=== PATIENT | male | born 1940 | race Caucasian/White ===

== ENCOUNTER 2016-05-24 10:50 | Emergency (ER) | payer MEDICARE, OTHER ==
[~2016-05-24] VITALS: Ht 175.3 cm; Wt 91.0 kg
[~2016-05-24 10:50] MED LIST: ASPI325T PO; ATEN1TAB74 PO; CLOP75 PO; NIAS10004 PO; PRIN10TA PO; PROS5TAB2 PO; ZOCO40TA PO
[2016-05-24 10:53] VITALS: BP 143/73; PULSE 80; RESP 18; TEMP 97.9; O2SAT 95
[2016-05-24] MEDS ORDERED: TRAM50TA PO (12:26)
--- NOTE | 2016-05-24 12:26 | PD ---
HPI Chief Complaint: Pain: Acute or Chronic Time Seen by Provider: 12:23 Travel History International Travel<30 days: No Contact w/Intl Traveler<30days: No Traveled to known affect area: No History of Present Illness HPI This 75-year-old man who presents emergent arm clinic of left leg pain. He states he is a history of sciatica. An MRI that showed a small cysts but he saw neurosurgery and admitted think it was related. [place] helped some but the pains coming back. He also has pain in his knee eating may be from arthritis. He has diabetes, CAD. He is told not to take NSAIDs. Is a little bit numbness and tingling. He states he has to stop with walking long distances more than 100 yards or so and rest. No history of claudication or blood flow problems in the past. History Past Medical History Narrative Medical CAD Diabetes Sciatica Social History Alcohol Use: Yes (ONCE A MONTH -BEER) Tobacco Use: No Allergies-Medications (Allergen,Severity, Reaction): Coded Allergies: No Known Allergies (Verified , 06/08/09) Reported Meds & Prescriptions Reported Meds & Active Scripts Active Reported Plavix (Clopidogrel Bisulfate) 75 Mg Tab 75 Mg PO DAILY Prinivil (Lisinopril) 10 Mg Tab 10 Mg PO DAILY Proscar (Finasteride) 5 Mg Tab 5 Mg PO HS Zocor (Simvastatin) 40 Mg Tab 40 Mg PO HS Aspirin 325 Mg Tab 325 Mg PO DAILY Niaspan Er (Niacin) 1,000 Er Tab 2,000 Mg PO HS Tenormin (Atenolol) 50 Mg Tab 50 Mg PO DAILY Review of Systems Except as stated in HPI: all other systems reviewed are Neg Physical Exam Narrative GENERAL: Well-developed, well-nourished, no acute distress. SKIN: Warm and dry. CARDIOVASCULAR: Warm and well perfused. RESPIRATORY: Normal rate and effort. MUSCULOSKELETAL: Normal appearance of back and bilateral lower extremities. No ecchymosis, swelling, bruising. No rashes. Normal muscle bulk and tone. NEUROLOGICAL: Full strength in both lower extremities. Good pulses in both lower extremities. Normal sensation. Some crepitus with extension of the left knee. Negative straight leg raise. Back exam is unremarkable. PSYCHIATRIC: Appropriate mood and affect; insight and judgment normal. Data Data Last Documented VS Vital Signs Date Time Temp Pulse Resp B/P Pulse Ox O2 Delivery O2 Flow Rate FiO2 05/24/16 10:53 97.9 80 18 143/73 95 MDM Medical Decision Making Medical Screen Exam Complete: Yes Emergency Medical Condition: Yes Differential Diagnosis Back pain, sciatica, claudication, PVD, other Narrative Course Medical decision making the Is a 75-year-old man who presents to the emergency department cleaning of left leg pain. Likely sciatica versus plication. Looks well. Is cannot return home in a month or so. Had benefit from injection in the past. We will refer him to Dr. Mallory. Recommend Tylenol, tramadol, outpatient follow-up. Diagnosis Primary Impression: Sciatica Qualified Code: M54.32 - Sciatica of left side Referrals: Heaven Mallory MD 1 week Patient Instructions: General Instructions Additional Instructions: Take Tylenol, 1000 mg, 3 times daily as needed for pain. Take tramadol in addition to Tylenol as needed for pain. Follow-up with Dr. Mallory for consideration of an injection similar to what you had in the past. Return to the emergency department for any new or worsening symptoms. Med/Other Pt SpecificInfo: Prescription(s) given Scripts Tramadol 50 Mg Tab50 Mg PO Q8H PRN (PAIN) #15 TAB Ref 0 Prov:Mike Shi MD 05/24/16 Disposition: 01 DISCHARGE HOME Condition: Stable Mike Shi MD May 24, 2016 12:26
== END 2016-05-24 13:32 | disposition home or self-care (01) ==
LOC: NEPA 10:50
DX: M54.32 Sciatica, left side (principal); I25.10 Atherosclerotic heart disease of native coronary artery without angina pectoris; E11.9 Type 2 diabetes mellitus without complications
CPT/HCPCS: 99282